=== PATIENT | male | born 1960 | race Hispanic/Latino ===

== ENCOUNTER 2024-02-01 15:54 | Outpatient (RCR) | payer MEDICARE ==
[~2024-02-01 15:54] MED LIST: TYLENOL EXTRA500 MG PO
== END 2024-02-13 ==
LOC: OT 15:54
PROVIDERS: ATTEND Specialist
DX: S46.012D Strain of muscle(s) and tendon(s) of the rotator cuff of left shoulder, subsequent encounter (principal); M25.512 Pain in left shoulder